=== PATIENT | male | born 1990 | race Caucasian/White ===

== ENCOUNTER 2016-09-29 | Outpatient (CLI) | payer OTHER | END 2016-09-29 00:04 | disposition critical access hospital (66) | CPT/HCPCS: A0425; A0427 ==

== ENCOUNTER 2016-09-29 00:18 | Emergency (ER) | payer OTHER ==
[2016-09-29] MEDS ORDERED: SODIUM CHLORIDE 0.9% 1,000 ML IV ONE (00:30)
[2016-09-29] MEDS ORDERED: KETOROLAC 60 MG/2 ML VIAL IVP STA (00:30)
[2016-09-29] MEDS ORDERED: KETOROLAC 30 MG/ML VIAL ONE (00:38)
[2016-09-29] MEDS ORDERED: HYALURONIDASE HUMAN RECOMB 150 UNIT/ML VIAL ID ONE (01:16)
[2016-09-29] MEDS ORDERED: HYALURONIDASE HUMAN RECOMB 150 UNIT/ML VIAL ONE (02:03)
[2016-09-29] MEDS ORDERED: IOPAMIDOL-300 100 ML VIAL IVP ONE (02:21)
== END 2016-09-29 02:45 | disposition home or self-care (01) ==
DX: S31.010A Laceration without foreign body of lower back and pelvis without penetration into retroperitoneum, initial encounter (principal); S39.022A Laceration of muscle, fascia and tendon of lower back, initial encounter; X99.1XXA Assault by knife, initial encounter
CPT/HCPCS: 12032; 36415; 74177; 80053; 80320; 83690; 85025; 86850; 86900; 86901; 96361; 96372; 96374; 99284; 99285; Q9967